=== PATIENT | male | born 1960 | race Caucasian/White ===

== ENCOUNTER 2020-04-06 14:31 | Emergency (ER) | payer MEDICAID ==
[~2020-04-06] VITALS: Ht 165.1 cm; Wt 81.6 kg
[2020-04-06 15:15] VITALS: BP_SYST 131
--- NOTE | 2020-04-06 15:20 | NUR ---
Patient triaged and placed in waiting room. VSS and patient appears in no acute distress at this time. Awaiting available bed, and MD notified of need for MSE.
--- NOTE | 2020-04-06 15:21 | NUR ---
Patient came from home for evaluation of abcess to left cheek. Patient reports that his daughter sent him in for evaluation. He denies pain, nausea, vomiting, and diarrhea. No discharge, no foul odor noted from abcess.
--- NOTE | 2020-04-06 16:49 | NUR ---
Patient vitals are withing normal limits. Patient sent back out to waiting room.
--- NOTE | 2020-04-06 19:50 | NUR ---
Patient vital signs are within normal limits. Patient sent back out to waiting room.
--- NOTE | 2020-04-06 21:30 | NUR ---
Note alber in ED - 04/07/20 at 0126 by JOSÉ Patient left without being seen.
--- NOTE | 2020-04-07 01:00 | NUR ---
PT RETURNED TO ER. HAS BEEN WAITING IN CAR. PLACED IN WAITING ROOM. NO DISTRESS APPARENT AT THIS TIME
--- NOTE | 2020-04-07 01:30 | NUR ---
PT SEEN IN WATING ROOM BY DR GRAMAJO. ORDERS WRITTEN
[2020-04-07 01:45] VITALS: BP_SYST 132
--- NOTE | 2020-04-07 01:45 | NUR ---
PLACED IN ROOM 7.
[2020-04-07] MEDS: cefTRIAXone 1 GM in LIDOCAINE 1%, 20 ML MDV 2.1 ML IM ONE (01:52)
--- NOTE | 2020-04-07 01:56 | NUR ---
Patient given written and verbal discharge instructions and verbalizes understanding. ER MD discussed with patient the results and treatment provided. Patient in stable condition. ID arm band removed. Rx of given. Patient educated on pain management and to follow up with PMD. Pain Scale . Opportunity for questions provided and answered. Medication side effect fact sheet provided.
--- NOTE | 2020-04-07 01:58 | NUR ---
no adverse reaction noted to medication, ok to d/c home.
== END 2020-04-07 01:57 | disposition home or self-care (01) ==
LOC: SED 14:31
DX: L02.02 Furuncle of face (principal); I10 Essential (primary) hypertension; E11.9 Type 2 diabetes mellitus without complications
CPT/HCPCS: 96372; 99283; J0696; J2001

== ENCOUNTER 2020-07-31 21:57 | Emergency (ER) | payer MEDICAID ==
[~2020-07-31] VITALS: Ht 167.6 cm; Wt 81.6 kg
[2020-07-31 22:13] VITALS: BP_SYST 119
[2020-07-31 23:07] LABS: BASOPHILS # (AUTO) 0.1 K/uL (0.0-0.2); BASOPHILS % (AUTO) 0.8 % (0.0-2.0); EOSINOPHILS # (AUTO) 0.2 K/uL (0.0-0.4); HEMATOCRIT 43.8 % (36-54); HEMOGLOBIN 14.9 g/dL (14.0-18.0); LYMPHOCYTES % (AUTO) 16.2 % (20.5-51.5); MEAN CORPUSCULAR HEMOGLOBIN 30 pg (27-31); MEAN CORPUSCULAR HGB CONC 34 % (32-36); MEAN CORPUSCULAR VOLUME 87 fL (79.0-98.0); MONOCYTES # (AUTO) 0.6 K/uL (0.0-1.0); MONOCYTES % (AUTO) 10.2 % (1.7-9.3); NEUTROPHILS # (AUTO) 4.4 K/uL (1.8-7.7); NEUTROPHILS % (AUTO) 69.8 % (40.0-70.0); PLATELET COUNT (AUTO) 169 K/uL (130-430); RED BLOOD CELL COUNT(AUTO) 5.03 MIL/uL (4.2-6.2); RED CELL DISTRIBUTION WIDTH 13.8 % (9.0-15.0); WHITE BLOOD COUNT (AUTO) 6.3 K/uL (4.8-10.8)
[2020-07-31 23:12] LABS: CALCIUM 8.4 mg/dL (8.4-11.0); CREATININE 0.82 mg/dL (0.55-1.30); POTASSIUM 3.9 mmol/L (3.5-5.1)
[2020-07-31 23:27] LABS: ALBUMIN 3.4 g/dL (3.4-4.8); FREE T4 (FREE THYROXINE) 1.1 ng/dl (0.8-1.5); THYROID STIMULATING HORMONE 1.27 uIu/mL (0.36-3.74); TOTAL BILIRUBIN 0.4 mg/dL (0.0-1.0)
[2020-08-01] MEDS ORDERED: IBUPROFEN 600 MG TABLET PO ONE (00:15)
[2020-08-01] MEDS ORDERED: AMOXICILLIN/CLAVULANATE POTASSIUM 875 MG TABLET PO ONE (00:15)
[2020-08-01] MEDS ORDERED: INSULIN REGULAR, HUMAN 10 UNITS/0.1 ML INJ SUBCUT ONE (00:30)
[2020-08-01] MEDS ORDERED: GLU500 PO (00:33)
[2020-08-01] MEDS ORDERED: IBUP-1969 PO (00:33)
[2020-08-01] MEDS ORDERED: AMOX-426 PO (00:33)
[2020-08-01 01:26] VITALS: BP_SYST 119
== END 2020-08-01 01:26 | disposition home or self-care (01) ==
LOC: SED 21:57
DX: E11.65 Type 2 diabetes mellitus with hyperglycemia (principal); E04.1 Nontoxic single thyroid nodule; R59.0 Localized enlarged lymph nodes; I10 Essential (primary) hypertension
CPT/HCPCS: 36415; 76536-TC; 80053; 82962; 84439; 84443-TC; 85025; 96372; 99284; J1815

== ENCOUNTER 2020-11-20 18:20 | Emergency (ER) | payer MEDICAID ==
[~2020-11-20] VITALS: Ht 165.1 cm; Wt 83.9 kg
[~2020-11-20 18:20] MED LIST: AMOX-426 PO; GLU500 PO; IBUP-1969 PO
[2020-11-20 18:40] VITALS: BP_SYST 127
--- NOTE | 2020-11-20 18:40 | NUR ---
PT TO REMAIN IN THE ER LOBBY UNTIL ER BED BECOMES AVAILABLE.
--- NOTE | 2020-11-20 21:40 | NUR ---
PT TO BED 7 FOR EVALUATION. REPORT TO RACHELL OHARA WHO WILL ASSUME CARE.
--- NOTE | 2020-11-20 21:40 | NUR ---
Assumed care of patient at change of shift. Introduced self to patient, positioned for comfort. Patient c/o left knee pain, non-traumatic, nvi, FROM, Crf<3 sec. patient h/o diabetes acck noted at 451. MD Mendes notified. Continue to monitor. Patient resting quietly. No acute distress noted. Vital signs within normal range.
--- NOTE | 2020-11-20 22:00 | NUR ---
# 18 gauge angiocath placed to left forearm. Use of asceptic technique. Opsite placed over site. Blood return noted. Blood for lab drawn from site. Flushed with 10 cc of normal saline. No evidence of infiltration noted. Patient tolerated well. Medicated per MD orders. IVF infusing with no s/s of infiltration at this time. Will cont to monitor and observe for any adverse reaction. bed to low position sr up. continue to monitor.
--- NOTE | 2020-11-20 22:35 | NUR ---
Repeat acck noted at 375, 2nd liter of IVF, NS 0.9%, infusing with no s/s of infiltration at this time. Will cont to monitor and observe for any adverse reaction. Bed to low position sr up. continue to monitor.
[2020-11-20 22:54] LABS: BASOPHILS % (AUTO) 0.5 % (0.0-2.0); EOSINOPHILS # (AUTO) 0.1 K/uL (0.0-0.4); EOSINOPHILS % (AUTO) 2.7 % (0.0-4.0); HEMATOCRIT 42.1 % (36-54); LYMPHOCYTES # (AUTO) 1.2 K/uL (1.0-5.5); LYMPHOCYTES % (AUTO) 24.5 % (20.5-51.5); MEAN CORPUSCULAR HEMOGLOBIN 29 pg (27-31); MEAN CORPUSCULAR HGB CONC 33 % (32-36); MEAN CORPUSCULAR VOLUME 87 fL (79.0-98.0); MONOCYTES # (AUTO) 0.5 K/uL (0.0-1.0); MONOCYTES % (AUTO) 10.9 % (1.7-9.3); NEUTROPHILS % (AUTO) 61.4 % (40.0-70.0); PLATELET COUNT (AUTO) 288 K/uL (130-430); RED BLOOD CELL COUNT(AUTO) 4.83 MIL/uL (4.2-6.2); RED CELL DISTRIBUTION WIDTH 13.1 % (9.0-15.0); WHITE BLOOD COUNT (AUTO) 4.9 K/uL (4.8-10.8)
[2020-11-20 23:04] VITALS: BP_SYST 130
[2020-11-20 23:04] LABS: ANION GAP 8 (5-15); CALCIUM 8.8 mg/dL (8.4-11.0); CHLORIDE 102 mmol/L (98-107); CREATININE 0.85 mg/dL (0.55-1.30); POTASSIUM 4.5 mmol/L (3.5-5.1); SODIUM SERUM 137 mmol/L (136-145); UREA NITROGEN, BLOOD 14 mg/dL (8-21)
[2020-11-20 23:09] LABS: ALANINE AMINOTRANSFERASE 16 U/L (12-78); ASPARTATE AMINOTRANSFERASE 13 U/L (10-37); TOTAL BILIRUBIN 0.4 mg/dL (0.0-1.0)
[2020-11-20 23:12] LABS: GFR AFRICAN AMERICAN 118 mL/min (>90); GLUCOSE 460 mg/dL (70-99)
[2020-11-20 23:13] LABS: ACETONE, SERUM NEGATIVE (NEGATIVE)
[2020-11-20] MEDS ORDERED: HYDR-3917 PO (23:38)
[2020-11-20] MEDS ORDERED: GLU500 PO (23:38)
[2020-11-20] MEDS ORDERED: IBUP-1969 PO (23:38)
[2020-11-20] MEDS ORDERED: INSULIN REGULAR, HUMAN 10 UNITS/0.1 ML INJ ONE (23:40)
--- NOTE | 2020-11-20 23:40 | NUR ---
Medicated 4 units of regular insulin to left deltoid per MD orders. Will cont to monitor and observe for any adverse reaction. continue to monitor.
[2020-11-20] MEDS ORDERED: CEPH250C PO (23:41)
[2020-11-20] MEDS ORDERED: NACL 0.9% 1,000 ML IV ONE (23:45)
[2020-11-20] MEDS ORDERED: INSULIN REGULAR, HUMAN 10 UNITS/0.1 ML INJ SUBCUT ONE (23:45)
--- NOTE | 2020-11-20 23:48 | NUR ---
Patient given written and verbal discharge instructions and verbalizes understanding. ER MD discussed with patient the results and treatment provided. Patient in stable condition. ID arm band removed. IV catheter removed intact and dressing applied, no active bleeding. Rx of keflex given. Patient educated on pain management and to follow up with PMD. Pain Scale 4. Opportunity for questions provided and answered. Medication side effect fact sheet provided.
== END 2020-11-20 23:50 | disposition home or self-care (01) ==
LOC: SED 18:20
DX: M70.52 Other bursitis of knee, left knee (principal); E11.65 Type 2 diabetes mellitus with hyperglycemia; I10 Essential (primary) hypertension; Z79.84 Long term (current) use of oral hypoglycemic drugs; Z79.899 Other long term (current) drug therapy; Y93.89 Activity, other specified
CPT/HCPCS: 36415; 73564; 80053; 82009; 82962; 85025; 96360; 96372; 99284; J1815; J7030

== ENCOUNTER 2021-05-19 22:05 | Emergency (ER) | payer MEDICAID, SELFPAY ==
[~2021-05-19] VITALS: Ht 165.1 cm; Wt 81.6 kg
[~2021-05-19 22:05] MED LIST changes: +CEPH250C PO; +HYDR-3917 PO
[2021-05-19 22:10] VITALS: BP_SYST 133
--- NOTE | 2021-05-19 22:32 | NUR ---
Patient to ER bed 4 to gown for evaluation. Side rails up. Report given to Darryl LOVETT.
--- NOTE | 2021-05-19 22:40 | NUR ---
DR. CARBONE ASSESSING PATIENT.
--- NOTE | 2021-05-19 23:00 | NUR ---
PATIENT A/OX4. PATIENT LYING IN BED WITH EYES OPEN, CHEST RISE AND FALL SYMMETRICAL, NO C/O PAIN OR S/S OR DISTRESS. BED IN LOW AND LOCKED POSITION.
[2021-05-19] MEDS ORDERED: CLIN-142 PO (23:09)
[2021-05-19] MEDS ORDERED: CLINDAMYCIN HCL 150 MG CAPSULE PO ONE (23:15)
[2021-05-19 23:24] VITALS: BP_SYST 132
--- NOTE | 2021-05-19 23:27 | NUR ---
PATIENT VERBALIZED UNDERSTANDING OF AFTERCARE INSTRUTIONS. PATIENT LEFT WITH PATIENT'S BELONGINGS AND ALL AFTERCARE INSTRUCTIONS. PATIENT WALKS WITH STRONG GAIT.
== END 2021-05-19 23:24 | disposition home or self-care (01) ==
LOC: SED 22:05
DX: S01.512A Laceration without foreign body of oral cavity, initial encounter (principal); E11.9 Type 2 diabetes mellitus without complications; I10 Essential (primary) hypertension; K05.10 Chronic gingivitis, plaque induced; L08.9 Local infection of the skin and subcutaneous tissue, unspecified; X58.XXXA Exposure to other specified factors, initial encounter; Y93.9 Activity, unspecified; Y92.9 Unspecified place or not applicable; Y99.9 Unspecified external cause status
CPT/HCPCS: 99283

== ENCOUNTER 2023-02-11 15:47 | Inpatient (IN) | payer SELFPAY ==
[~2023-02-11] VITALS: Ht 165.1 cm; Wt 81.6 kg
[~2023-02-11 15:47] MED LIST changes: -AMOX-426 PO; +ASPI-1393 PO; -CEPH250C PO; +DOXY100C5 PO; +GLIP10TA21 PO; +SITA100T11 PO
[2023-02-11 16:02] VITALS: BP_SYST 131; PULSE 70; RESP 18; TEMP 98.3; O2SAT 99
[2023-02-11] MEDS ORDERED: VANCOMYCIN HCL 1,000 MG in NS 250 ML IV ONE (17:45)
[2023-02-11] MEDS ORDERED: PIPERACILLIN/TAZO 3.375 GM in NS 50 ML IV ONE (17:45)
[2023-02-11] MEDS ORDERED: NACL 0.9% 1,000 ML IV ONE (18:00)
[2023-02-11] MEDS ORDERED: VANCOMYCIN HCL 1000 MG/VIAL IV ONE (18:26)
[2023-02-11] MEDS ORDERED: PIPERACILLIN/TAZOBACTAM 3.375 GM/VIAL (ZOSYN) IV ONE (18:27)
[2023-02-11 18:35] LABS: BASOPHILS # (AUTO) 0.1 K/uL (0.0-0.2); BASOPHILS % (AUTO) 0.7 % (0.0-2.0); EOSINOPHILS # (AUTO) 0.2 K/uL (0.0-0.4); HEMATOCRIT 34.9 % (36-54); HEMOGLOBIN 11.5 g/dL (14.0-18.0); LYMPHOCYTES % (AUTO) 13.2 % (20.5-51.5); MEAN CORPUSCULAR HEMOGLOBIN 28 pg (27-31); MEAN CORPUSCULAR HGB CONC 33 % (32-36); MEAN CORPUSCULAR VOLUME 84 fL (79.0-98.0); MONOCYTES # (AUTO) 0.6 K/uL (0.0-1.0); MONOCYTES % (AUTO) 7.8 % (1.7-9.3); NEUTROPHILS # (AUTO) 5.8 K/uL (1.8-7.7); NEUTROPHILS % (AUTO) 75.3 % (40.0-70.0); PLATELET COUNT (AUTO) 387 K/uL (130-430); RED BLOOD CELL COUNT(AUTO) 4.14 MIL/uL (4.2-6.2); RED CELL DISTRIBUTION WIDTH 13.6 % (9.0-15.0); WHITE BLOOD COUNT (AUTO) 7.7 K/uL (4.8-10.8)
[2023-02-11 18:41] LABS: ERYTHROCYTE SEDIMENTATION RATE 48 MM/HR (0-15)
[2023-02-11] MEDS ORDERED: MAG HYDROX/AL HYDROX/SIMETH 30 ML, DICYCLOMINE HCL 20 MG, LIDOCAINE VISCOUS 2% 15ML (PO... PO ONE ×3 (18:45)
[2023-02-11 18:56] LABS: PROTHROMBIN TIME 10.8 SECS (9.5-12.5)
[2023-02-11 18:58] LABS: CALCIUM 8.6 mg/dL (8.4-11.0); CREATININE 0.63 mg/dL (0.55-1.30)
[2023-02-11 19:16] LABS: BILIRUBIN,URINE NEGATIVE (NEGATIVE); CLARITY/URINE CLEAR (CLEAR); COLOR,URINE YELLOW (YELLOW); GLUCOSE,URINE NEGATIVE (NEGATIVE); KETONES,URINE NEGATIVE (NEGATIVE); LEUKOCYTE ESTERASE ,URINE NEGATIVE (NEGATIVE); NITRITE, URINE NEGATIVE (NEGATIVE); PROTEIN URINE NEGATIVE (NEGATIVE); UROBILINOGEN,URINE 0.2 (0.2-1.0)
[2023-02-11 19:18] LABS: BLOOD, URINE TRACE (NEGATIVE)
[2023-02-11 19:25] LABS: BACTERIA,URINE RARE /HPF (None Seen); MUCUS,URINE None Seen /LPF (None Seen); RBC,URINE 0-3 /HPF (0-3); WBC,URINE NONE SEEN /HPF (0-3)
[2023-02-11 19:33] LABS: ALBUMIN 2.4 g/dL (3.4-4.8); TOTAL BILIRUBIN 0.3 mg/dL (0.0-1.0); TOTAL PROTEIN, SERUM 7.6 g/dL (6.4-8.3)
[2023-02-11] MEDS ORDERED: DOXY-244 PO (20:49)
[2023-02-11] MEDS ORDERED: ASPI-1393 PO (20:50)
[2023-02-11] MEDS ORDERED: GLIP10TA11 PO (20:53)
[2023-02-11] MEDS ORDERED: SITA100T11 PO (20:54)
[2023-02-11 21:41] LABS: CALCIUM 8.3 mg/dL (8.4-11.0); CREATININE 0.67 mg/dL (0.55-1.30); POTASSIUM 4.1 mmol/L (3.5-5.1)
[2023-02-11 22:00] VITALS: BP_SYST 149; PULSE 73; RESP 18; TEMP 98.9; O2SAT 99
[2023-02-12] MEDS ORDERED: PIPERACILLIN/TAZOBACTAM 3.375 GM/VIAL (ZOSYN) IV ONE (00:21)
[2023-02-12] MEDS: INSULIN REGULAR, HUMAN 100 UNITS/ML, 3 ML VIAL (humuLIN R) SUBCUT SCH ×5 (00:29→23:22)
[2023-02-12] MEDS: PIPERACILLIN/TAZO 3.375 GM in NS 50 ML IV SCH ×4 (00:33→21:31)
[2023-02-12] MEDS: NACL 0.9% 1,000 ML IV SCH ×2 (00:40→21:31)
[2023-02-12 07:13] LABS: BASOPHILS % (AUTO) 0.7 % (0.0-2.0); EOSINOPHILS # (AUTO) 0.3 K/uL (0.0-0.4); EOSINOPHILS % (AUTO) 3.7 % (0.0-4.0); HEMATOCRIT 33.2 % (36-54); HEMOGLOBIN 10.8 g/dL (14.0-18.0); LYMPHOCYTES % (AUTO) 13.8 % (20.5-51.5); MEAN CORPUSCULAR HEMOGLOBIN 27 pg (27-31); MEAN CORPUSCULAR HGB CONC 33 % (32-36); MEAN CORPUSCULAR VOLUME 84 fL (79.0-98.0); MONOCYTES # (AUTO) 0.5 K/uL (0.0-1.0); MONOCYTES % (AUTO) 6.8 % (1.7-9.3); NEUTROPHILS # (AUTO) 5.3 K/uL (1.8-7.7); PLATELET COUNT (AUTO) 403 K/uL (130-430); RED BLOOD CELL COUNT(AUTO) 3.94 MIL/uL (4.2-6.2); RED CELL DISTRIBUTION WIDTH 13.8 % (9.0-15.0); WHITE BLOOD COUNT (AUTO) 7.1 K/uL (4.8-10.8)
[2023-02-12] MEDS ORDERED: VANCOMYCIN HCL 1,000 MG in NS 250 ML IV SCH (09:00)
[2023-02-12] MEDS: VANCOMYCIN HCL 750 MG in NS 250 ML IV SCH ×2 (09:03→16:36)
[2023-02-12] MEDS ORDERED: HYDROcodone/ACETAMIN 5-325 MG TAB (NORCO/ VICODIN) PO PRN (11:00)
[2023-02-12] MEDS ORDERED: IBUPROFEN 600 MG TABLET PO PRN (11:00)
[2023-02-12 11:08] VITALS: BP_SYST 102; PULSE 78; RESP 17; TEMP 98.2; O2SAT 97
[2023-02-12 16:21] VITALS: BP_SYST 127; PULSE 68; RESP 17; TEMP 97.6; O2SAT 96
[2023-02-12 20:00] VITALS: BP_SYST 125; PULSE 67; RESP 18; TEMP 97.1; O2SAT 97
[2023-02-13] VITALS (8 sets, daily range): BP systolic 115–131; PULSE 59–76; RESP 15–18; TEMP 96.5–98.2; O2SAT 95–99
[2023-02-13] MEDS: VANCOMYCIN HCL 750 MG in NS 250 ML IV SCH ×3 (00:39→17:09)
[2023-02-13] MEDS: PIPERACILLIN/TAZO 3.375 GM in NS 50 ML IV SCH ×3 (05:55→21:49)
[2023-02-13] MEDS: INSULIN REGULAR, HUMAN 100 UNITS/ML, 3 ML VIAL (humuLIN R) SUBCUT SCH (05:58)
[2023-02-13 07:47] LABS: BASOPHILS # (AUTO) 0.1 K/uL (0.0-0.2); EOSINOPHILS # (AUTO) 0.3 K/uL (0.0-0.4); EOSINOPHILS % (AUTO) 4.3 % (0.0-4.0); HEMATOCRIT 33.2 % (36-54); HEMOGLOBIN 10.8 g/dL (14.0-18.0); LYMPHOCYTES # (AUTO) 1.1 K/uL (1.0-5.5); LYMPHOCYTES % (AUTO) 18.2 % (20.5-51.5); MEAN CORPUSCULAR HEMOGLOBIN 27 pg (27-31); MEAN CORPUSCULAR HGB CONC 32 % (32-36); MEAN CORPUSCULAR VOLUME 84 fL (79.0-98.0); MONOCYTES # (AUTO) 0.4 K/uL (0.0-1.0); MONOCYTES % (AUTO) 6.6 % (1.7-9.3); NEUTROPHILS # (AUTO) 4.2 K/uL (1.8-7.7); NEUTROPHILS % (AUTO) 69.9 % (40.0-70.0); PLATELET COUNT (AUTO) 408 K/uL (130-430); RED BLOOD CELL COUNT(AUTO) 3.94 MIL/uL (4.2-6.2); RED CELL DISTRIBUTION WIDTH 13.8 % (9.0-15.0)
[2023-02-13] MEDS: ASPIRIN 81 MG TABLET(ECOTRIN) PO SCH (08:53)
[2023-02-13 09:33] LABS: CALCIUM 8.5 mg/dL (8.4-11.0); CREATININE 0.73 mg/dL (0.55-1.30); POTASSIUM 3.8 mmol/L (3.5-5.1)
[2023-02-13] MEDS: NACL 0.9% 1,000 ML IV SCH (21:50)
[2023-02-14] MEDS: VANCOMYCIN HCL 750 MG in NS 250 ML IV SCH ×3 (00:31→17:41)
[2023-02-14] MEDS: PIPERACILLIN/TAZO 3.375 GM in NS 50 ML IV SCH ×3 (05:17→21:50)
[2023-02-14 07:32] LABS: BASOPHILS # (AUTO) 0.1 K/uL (0.0-0.2); BASOPHILS % (AUTO) 0.9 % (0.0-2.0); EOSINOPHILS # (AUTO) 0.2 K/uL (0.0-0.4); EOSINOPHILS % (AUTO) 2.9 % (0.0-4.0); HEMATOCRIT 34.3 % (36-54); HEMOGLOBIN 11.1 g/dL (14.0-18.0); LYMPHOCYTES # (AUTO) 1.2 K/uL (1.0-5.5); LYMPHOCYTES % (AUTO) 19.9 % (20.5-51.5); MEAN CORPUSCULAR HEMOGLOBIN 27 pg (27-31); MEAN CORPUSCULAR HGB CONC 32 % (32-36); MEAN CORPUSCULAR VOLUME 84 fL (79.0-98.0); MONOCYTES # (AUTO) 0.4 K/uL (0.0-1.0); MONOCYTES % (AUTO) 6.4 % (1.7-9.3); NEUTROPHILS # (AUTO) 4.4 K/uL (1.8-7.7); NEUTROPHILS % (AUTO) 69.9 % (40.0-70.0); PLATELET COUNT (AUTO) 416 K/uL (130-430); RED BLOOD CELL COUNT(AUTO) 4.08 MIL/uL (4.2-6.2); RED CELL DISTRIBUTION WIDTH 13.6 % (9.0-15.0); WHITE BLOOD COUNT (AUTO) 6.3 K/uL (4.8-10.8)
[2023-02-14 07:50] LABS: CALCIUM 8.8 mg/dL (8.4-11.0); CREATININE 0.79 mg/dL (0.55-1.30); POTASSIUM 3.6 mmol/L (3.5-5.1)
[2023-02-14] MEDS: D5/0.45 NS 1,000 ML IV SCH (08:45)
[2023-02-14] MEDS: ASPIRIN 81 MG TABLET(ECOTRIN) PO SCH (08:45)
[2023-02-14 08:46] VITALS: BP_SYST 138; PULSE 76; RESP 18; TEMP 97.5; O2SAT 97
[2023-02-14 11:21] VITALS: BP_SYST 122; PULSE 62; RESP 17; TEMP 98; O2SAT 100
[2023-02-14] MEDS ORDERED: BUPIVACAINE /PF 0.25% 30 ML VIAL INJ ONE (11:40)
[2023-02-14] MEDS ORDERED: WATER FOR IRRIGATION,STERILE 1,000 ML IRRIG.SOLN IR ONE (11:40)
[2023-02-14] MEDS ORDERED: fentaNYL CITRATE/PF 100 MCG/2 ML AMP ONE (11:40)
[2023-02-14] MEDS ORDERED: PROPOFOL 200MG/ 20ML VIAL (DIPRIVAN) IV ONE (11:40)
[2023-02-14] MEDS ORDERED: SEVOFLURANE 15 MIN GAS INH ONE (11:40)
[2023-02-14] MEDS ORDERED: LIDOCAINE 2%, 20 ML MDV ONE (11:40)
[2023-02-14] MEDS ORDERED: DEXAMETHASONE SOD PHOSPHATE 4 MG/ML VIAL ONE (11:40)
[2023-02-14] MEDS ORDERED: ONDANSETRON HCL 4 MG/2 ML VIAL ONE (11:40)
[2023-02-14] MEDS ORDERED: KETOROLAC TROMETHAMINE 30 MG VIAL ONE (11:40)
[2023-02-14] MEDS ORDERED: NS IRRIG SOLN 1000 ML IR ONE (11:40)
[2023-02-14] MEDS ORDERED: MIDAZOLAM HCL/PF 2 MG/2 ML SYRINGE ONE (11:40)
[2023-02-14] MEDS ORDERED: LR 1,000 ML IV.SOLN IV ONE (11:40)
[2023-02-14] MEDS ORDERED: HYDROmorphone 1 MG/ML INJ. CARTRIDGE IVP PRN ×2 (12:15)
[2023-02-14] MEDS ORDERED: hydrALAZINE HCL 20 MG/ML VIAL IVP PRN (12:15)
[2023-02-14] MEDS ORDERED: MIDAZOLAM HCL 2 MG/2 ML VIAL (VERSED) IVP PRN (12:15)
[2023-02-14] MEDS ORDERED: METOCLOPRAMIDE HCL 10 MG/2 ML VIAL IVP PRN (12:15)
[2023-02-14] MEDS ORDERED: LABETALOL 100 MG/ 20ML VIAL IVP PRN (12:15)
[2023-02-14] MEDS ORDERED: MEPERIDINE HCL/PF 25 MG/ML DISP.SYRIN IVP PRN (12:15)
[2023-02-14 12:46] VITALS: BP_SYST 122; PULSE 62; O2SAT 100
[2023-02-14 17:30] VITALS: BP_SYST 149; PULSE 80; RESP 17; TEMP 98.4; O2SAT 96
[2023-02-14] MEDS: INSULIN REGULAR, HUMAN 100 UNITS/ML, 3 ML VIAL (humuLIN R) SUBCUT PRN (17:44)
[2023-02-14 20:00] VITALS: BP_SYST 124; PULSE 93; RESP 18; TEMP 97.9; O2SAT 97
[2023-02-14] MEDS: LR 1,000 ML IV SCH (22:21)
[2023-02-15] VITALS: BP_SYST 117; PULSE 89; RESP 16; TEMP 98.1; O2SAT 94
[2023-02-15] MEDS: INSULIN REGULAR, HUMAN 100 UNITS/ML, 3 ML VIAL (humuLIN R) SUBCUT PRN ×2 (00:41→06:35)
[2023-02-15] MEDS: VANCOMYCIN HCL 750 MG in NS 250 ML IV SCH ×3 (00:48→17:00)
[2023-02-15 04:20] LABS: BASOPHILS % (AUTO) 0.5 % (0.0-2.0); EOSINOPHILS % (AUTO) 0.8 % (0.0-4.0); HEMATOCRIT 33.7 % (36-54); LYMPHOCYTES # (AUTO) 1.1 K/uL (1.0-5.5); LYMPHOCYTES % (AUTO) 18.7 % (20.5-51.5); MEAN CORPUSCULAR HEMOGLOBIN 27 pg (27-31); MEAN CORPUSCULAR HGB CONC 33 % (32-36); MEAN CORPUSCULAR VOLUME 83 fL (79.0-98.0); MONOCYTES # (AUTO) 0.4 K/uL (0.0-1.0); MONOCYTES % (AUTO) 6.4 % (1.7-9.3); NEUTROPHILS # (AUTO) 4.3 K/uL (1.8-7.7); NEUTROPHILS % (AUTO) 73.6 % (40.0-70.0); PLATELET COUNT (AUTO) 392 K/uL (130-430); RED BLOOD CELL COUNT(AUTO) 4.05 MIL/uL (4.2-6.2); RED CELL DISTRIBUTION WIDTH 13.8 % (9.0-15.0); WHITE BLOOD COUNT (AUTO) 5.8 K/uL (4.8-10.8)
[2023-02-15 04:31] LABS: CALCIUM 8.3 mg/dL (8.4-11.0); CREATININE 0.84 mg/dL (0.55-1.30); POTASSIUM 3.7 mmol/L (3.5-5.1)
[2023-02-15] MEDS: PIPERACILLIN/TAZO 3.375 GM in NS 50 ML IV SCH ×3 (06:16→21:52)
[2023-02-15] MEDS: D5/0.45 NS 1,000 ML IV SCH (07:04)
[2023-02-15 07:30] VITALS: BP_SYST 125; PULSE 69; RESP 16; TEMP 98.2
[2023-02-15] MEDS: LR 1,000 ML IV SCH ×2 (08:15→18:15)
[2023-02-15] MEDS: ASPIRIN 81 MG TABLET(ECOTRIN) PO SCH (09:26)
[2023-02-15 12:00] VITALS: BP_SYST 127; PULSE 68; RESP 16; TEMP 98.3; O2SAT 97
[2023-02-15 16:00] VITALS: BP_SYST 141; PULSE 66; RESP 16; TEMP 98.3; O2SAT 98
[2023-02-15] MEDS ORDERED: LANOLIN ALCOHOL/MO/W.PET/CERES 57 GM CREAM..G. TP ONE (18:00)
[2023-02-15 20:00] VITALS: BP_SYST 132; PULSE 74; RESP 18; TEMP 98.2; O2SAT 98
[2023-02-16 00:55] VITALS: BP_SYST 155; PULSE 63; RESP 18; TEMP 98.5; O2SAT 96
[2023-02-16] MEDS: VANCOMYCIN HCL 750 MG in NS 250 ML IV SCH ×3 (01:09→17:14)
[2023-02-16] MEDS: INSULIN REGULAR, HUMAN 100 UNITS/ML, 3 ML VIAL (humuLIN R) SUBCUT PRN ×4 (01:35→23:05)
[2023-02-16] MEDS: LR 1,000 ML IV SCH ×2 (04:15→14:15)
[2023-02-16 05:36] LABS: BASOPHILS # (AUTO) 0.1 K/uL (0.0-0.2); BASOPHILS % (AUTO) 1.2 % (0.0-2.0); EOSINOPHILS # (AUTO) 0.3 K/uL (0.0-0.4); EOSINOPHILS % (AUTO) 5.2 % (0.0-4.0); HEMATOCRIT 33.6 % (36-54); HEMOGLOBIN 10.8 g/dL (14.0-18.0); LYMPHOCYTES # (AUTO) 1.4 K/uL (1.0-5.5); LYMPHOCYTES % (AUTO) 25.2 % (20.5-51.5); MEAN CORPUSCULAR HEMOGLOBIN 27 pg (27-31); MEAN CORPUSCULAR HGB CONC 32 % (32-36); MEAN CORPUSCULAR VOLUME 84 fL (79.0-98.0); MONOCYTES # (AUTO) 0.5 K/uL (0.0-1.0); NEUTROPHILS # (AUTO) 3.4 K/uL (1.8-7.7); NEUTROPHILS % (AUTO) 60.4 % (40.0-70.0); PLATELET COUNT (AUTO) 372 K/uL (130-430); RED BLOOD CELL COUNT(AUTO) 3.98 MIL/uL (4.2-6.2); RED CELL DISTRIBUTION WIDTH 14.1 % (9.0-15.0); WHITE BLOOD COUNT (AUTO) 5.7 K/uL (4.8-10.8)
[2023-02-16 06:00] LABS: CALCIUM 8.2 mg/dL (8.4-11.0); CREATININE 0.76 mg/dL (0.55-1.30); POTASSIUM 3.6 mmol/L (3.5-5.1)
[2023-02-16] MEDS: PIPERACILLIN/TAZO 3.375 GM in NS 50 ML IV SCH ×3 (06:23→22:55)
[2023-02-16] MEDS: D5/0.45 NS 1,000 ML IV SCH ×2 (06:56)
[2023-02-16 07:30] VITALS: BP_SYST 114; PULSE 75; RESP 18; TEMP 97.5; O2SAT 95
[2023-02-16] MEDS: ASPIRIN 81 MG TABLET(ECOTRIN) PO SCH (09:12)
[2023-02-16 11:30] VITALS: BP_SYST 130; PULSE 69; RESP 17; TEMP 98.1; O2SAT 97
[2023-02-16 12:00] VITALS: BP_SYST 130; PULSE 69; RESP 17; TEMP 98.1; O2SAT 97
[2023-02-16 19:00] VITALS: BP_SYST 132; PULSE 98; RESP 16; TEMP 98.2; O2SAT 98
[2023-02-16 20:00] VITALS: BP_SYST 132; PULSE 98; RESP 16; TEMP 98.2; O2SAT 98
[2023-02-17] MEDS: LR 1,000 ML IV SCH ×2 (00:08→09:49)
[2023-02-17 00:59] VITALS: BP_SYST 107; PULSE 68; RESP 19; TEMP 97.9; O2SAT 97
[2023-02-17] MEDS: VANCOMYCIN HCL 750 MG in NS 250 ML IV SCH ×3 (01:15→16:27)
[2023-02-17] MEDS: PIPERACILLIN/TAZO 3.375 GM in NS 50 ML IV SCH ×3 (05:23→22:06)
[2023-02-17 07:58] LABS: ALBUMIN 2.3 g/dL (3.4-4.8); CALCIUM 8.6 mg/dL (8.4-11.0); CREATININE 0.77 mg/dL (0.55-1.30); POTASSIUM 3.8 mmol/L (3.5-5.1); TOTAL BILIRUBIN 0.2 mg/dL (0.0-1.0); TOTAL PROTEIN, SERUM 6.9 g/dL (6.4-8.3)
[2023-02-17 07:59] LABS: VANCOMYCIN,TROUGH 14.1 ug/mL (10.0-20.0)
[2023-02-17 08:30] VITALS: BP_SYST 125; PULSE 68; RESP 17; TEMP 98.6; O2SAT 97
[2023-02-17] MEDS: ASPIRIN 81 MG TABLET(ECOTRIN) PO SCH (09:46)
[2023-02-17] MEDS: INSULIN REGULAR, HUMAN 100 UNITS/ML, 3 ML VIAL (humuLIN R) SUBCUT PRN (11:44)
[2023-02-17 12:30] VITALS: BP_SYST 113; PULSE 75; RESP 18; TEMP 98.2; O2SAT 98
[2023-02-17] MEDS: D5/0.45 NS 1,000 ML IV SCH (16:27)
[2023-02-17 16:30] VITALS: BP_SYST 122; PULSE 78; RESP 18; TEMP 97.9; O2SAT 97
[2023-02-17 20:00] VITALS: BP_SYST 115; PULSE 66; RESP 20; TEMP 98.6; O2SAT 97
[2023-02-18] VITALS: BP_SYST 110; PULSE 63; RESP 20; TEMP 98.2; O2SAT 97
[2023-02-18] MEDS: INSULIN REGULAR, HUMAN 100 UNITS/ML, 3 ML VIAL (humuLIN R) SUBCUT PRN ×2 (00:21→13:41)
[2023-02-18] MEDS: VANCOMYCIN HCL 750 MG in NS 250 ML IV SCH ×2 (00:22→11:16)
[2023-02-18 05:15] LABS: CALCIUM 8.5 mg/dL (8.4-11.0); CREATININE 0.83 mg/dL (0.55-1.30); POTASSIUM 3.7 mmol/L (3.5-5.1)
[2023-02-18 05:19] LABS: BASOPHILS % (AUTO) 0.8 % (0.0-2.0); EOSINOPHILS # (AUTO) 0.4 K/uL (0.0-0.4); EOSINOPHILS % (AUTO) 7.6 % (0.0-4.0); HEMATOCRIT 33.6 % (36-54); HEMOGLOBIN 10.9 g/dL (14.0-18.0); LYMPHOCYTES # (AUTO) 1.4 K/uL (1.0-5.5); LYMPHOCYTES % (AUTO) 29.5 % (20.5-51.5); MEAN CORPUSCULAR HEMOGLOBIN 27 pg (27-31); MEAN CORPUSCULAR HGB CONC 32 % (32-36); MEAN CORPUSCULAR VOLUME 84 fL (79.0-98.0); MONOCYTES # (AUTO) 0.4 K/uL (0.0-1.0); MONOCYTES % (AUTO) 8.9 % (1.7-9.3); NEUTROPHILS # (AUTO) 2.6 K/uL (1.8-7.7); NEUTROPHILS % (AUTO) 53.2 % (40.0-70.0); PLATELET COUNT (AUTO) 359 K/uL (130-430); WHITE BLOOD COUNT (AUTO) 4.8 K/uL (4.8-10.8)
[2023-02-18] MEDS: PIPERACILLIN/TAZO 3.375 GM in NS 50 ML IV SCH (06:10)
[2023-02-18 08:30] VITALS: BP_SYST 119; PULSE 68; RESP 12; TEMP 97.7; O2SAT 96
[2023-02-18] MEDS: ASPIRIN 81 MG TABLET(ECOTRIN) PO SCH (10:56)
[2023-02-18] MEDS ORDERED: levoFLOXacin 750 MG TABLET PO ONE (12:15)
[2023-02-18] MEDS: D5/0.45 NS 1,000 ML IV SCH (13:42)
[2023-02-18 14:29] VITALS: BP_SYST 119; PULSE 12; RESP 12; TEMP 97.7; O2SAT 96
[2023-02-19] MEDS ORDERED: levoFLOXacin 750 MG TABLET PO SCH (09:00)
== END 2023-02-18 17:00 | disposition home health service (06) | DRG 616 ==
LOC: SED 15:47 → STU 20:04 → SMU 20:45 → STU 20:49 → SMU 02-13 12:15
PROVIDERS: ADMIT Internal Medicine; ATTEND Internal Medicine
PROC: 0Y6X0Z0 Detachment at Right 5th Toe, Complete, Open Approach (ICD-10-PCS; principal; 2023-02-14 11:30)
DX: E11.69 Type 2 diabetes mellitus with other specified complication (principal); E43 Unspecified severe protein-calorie malnutrition; E11.52 Type 2 diabetes mellitus with diabetic peripheral angiopathy with gangrene; M86.171 Other acute osteomyelitis, right ankle and foot; I96 Gangrene, not elsewhere classified; L03.115 Cellulitis of right lower limb; L02.611 Cutaneous abscess of right foot; Z20.822 Contact with and (suspected) exposure to COVID-19; Z79.2 Long term (current) use of antibiotics; Z79.899 Other long term (current) drug therapy; Z79.82 Long term (current) use of aspirin; Z68.30 Body mass index [BMI] 30.0-30.9, adult
CPT/HCPCS: 36415; 71045; 80048; 80053; 80202; 81000; 81001; 81015; 82962; 83605; 85025; 85610-TC; 85651-TC; 85730-TC; 87040; 87070-TC; 87075-TC; 87081; 87086; 87101; 88305; 88311; 93005; 94010; 96365; 96368; 97110-GP; 97116-GP; 97530-GP; 99285; G0378; J0696; J1100; J1885; J2001; J2405; J2543; J2704; J3010; J3370; J3465; J3490; J7050; J7060; J7120